=== PATIENT | female | born 1965 | race Caucasian/White ===

== ENCOUNTER 2020-04-09 10:45 | Emergency (ER) | payer OTHER ==
[~2020-04-09 10:45] MED LIST: COLACE 100MG C100 MG PO
[2020-04-09 12:06] LABS: HEMOGLOBIN 12.6 gm/dl (12.3-15.3); RED BLOOD COUNT 4.53 M/UL (4.00-5.10); WHITE BLOOD COUNT 7.8 K/UL (4.5-11.0)
[2020-04-09 12:30] LABS: BUN/CREATININE RATIO 23 (0-10)
== END 2020-04-09 16:15 | disposition home or self-care (01) ==
LOC: ER1 10:45
PROVIDERS: Family Medicine
DX: R07.89 Other chest pain (principal); R00.2 Palpitations; E11.40 Type 2 diabetes mellitus with diabetic neuropathy, unspecified; I10 Essential (primary) hypertension; Z90.710 Acquired absence of both cervix and uterus
CPT/HCPCS: 36415; 71045; 80053; 82550; 82553; 82962; 83690; 83735; 83874; 84439; 84443; 84484; 85025; 93005; 93242; 99285

== ENCOUNTER → 2021-01-14 | Outpatient (CLI) | payer SELFPAY | LOC: HEART 5 08:50 | DX: R94.31 Abnormal electrocardiogram [ECG] [EKG] (principal); R07.9 Chest pain, unspecified | CPT/HCPCS: 78452; 93306; A9502; J2785 ==